=== PATIENT | female | born 1955 | race Caucasian/White ===

== ENCOUNTER 2017-01-31 10:34 | Emergency (ER) | payer MEDICARE, MEDICAID ==
[~2017-01-31 10:34] MED LIST: ALLOPURINOL300 M1 PO; AMLODIPINE BESY10 M1 PO; BUDESONIDE EC3 M1 PO; GABAPENTIN300 M1 PO; HYDROCHLOROTHIA25 M1 PO; HYDROMORPHONE HC4 M1 PO; LEVAQUIN500 M1 PO; LISINOPRIL20 M1 PO; LORATADINE10 M2 PO; MIRALAX17 G2 PO; NUCYNTA ER100 M1 PO; RECTICARE TOP; SENOKOT-S TABL1 EACH PO; TIZANIDINE HCL4 M3 PO; VERAMYST10 G1
[2017-01-31] MEDS ORDERED: SILVADENE20 G1 TP (10:49)
[2017-01-31] MEDS ORDERED: DIFLUCAN100 M1 PO (11:19)
[2017-03-04] MEDS ORDERED: ZOVIRAX200 M1 PO (11:46)
[2017-03-04] MEDS ORDERED: ALBUTEROL2.5 MG/3 M NEB (11:47)
[2017-03-04] MEDS ORDERED: NORVASC5 M2 PO (11:47)
[2017-03-04] MEDS ORDERED: FLONASE ALLERG9.9 ML INH (11:48)
[2017-03-04] MEDS ORDERED: WELLBUTRIN XL150 M1 PO (11:48)
[2017-03-04] MEDS ORDERED: NEURONTIN300 M1 PO (11:49)
[2017-03-04] MEDS ORDERED: LANTUS100 UNITS/ SC (11:49)
[2017-03-04] MEDS ORDERED: DILAUDID2 M1 PO (11:49)
[2017-03-04] MEDS ORDERED: PRINIVIL20 M1 PO (11:49)
[2017-03-04] MEDS ORDERED: NUCYNTA ER100 M1 PO (11:50)
[2017-03-04] MEDS ORDERED: ATIVAN1 M2 PO (11:50)
[2017-03-04] MEDS ORDERED: LIDOCAINE-PRILO30 G1 TD (11:50)
[2017-03-04] MEDS ORDERED: NYSTATIN100000 UNI PO (11:52)
[2017-03-04] MEDS ORDERED: ZANAFLEX4 M2 PO (11:52)
[2017-03-04] MEDS ORDERED: BACTRIM DS TAB1 EAC2 PO (11:53)
== END 2017-01-31 11:25 ==
LOC: EDMED 10:34
DX: L02.31 Cutaneous abscess of buttock (principal); B37.3 Candidiasis of vulva and vagina; E11.9 Type 2 diabetes mellitus without complications; Z79.899 Other long term (current) drug therapy